=== PATIENT | male | born 1965 | race Caucasian/White ===

== ENCOUNTER 2018-11-07 11:09 | Emergency (ER) | payer OTHER ==
[~2018-11-07] VITALS: Ht 180.3 cm; Wt 68.0 kg
== END 2018-11-07 17:58 | disposition designated cancer center or children's hospital (05) ==
LOC: ER 11:09
DX: S22.42XA Multiple fractures of ribs, left side, initial encounter for closed fracture (principal); S37.012A Minor contusion of left kidney, initial encounter; S30.0XXA Contusion of lower back and pelvis, initial encounter; N20.0 Calculus of kidney; W18.39XA Other fall on same level, initial encounter; Y93.89 Activity, other specified; Y92.89 Other specified places as the place of occurrence of the external cause; Y99.8 Other external cause status

== ENCOUNTER 2024-02-13 15:09 | Outpatient (CLI) | payer OTHER | END 2024-02-13 15:20 | disposition home or self-care (01) | LOC: SONOGRAMA 15:09 | PROVIDERS: ATTEND General Practice | DX: E83.119 Hemochromatosis, unspecified (principal); R10.11 Right upper quadrant pain ==